=== PATIENT | male | born 1965 | race Two or more races ===

== ENCOUNTER 2020-11-27 08:16 | Emergency (ER) | payer MEDICAID ==
[~2020-11-27] VITALS: Ht 167.6 cm; Wt 78.5 kg
[2020-11-27 08:21] VITALS: BP 137/91
[2020-11-27] MEDS ORDERED: ACETAMINOPHEN EXTRA STRENGTH 500 MG TAB PO ONE (08:30)
[2020-11-27] MEDS ORDERED: DICYCLOMINE HCL LIQUID 20 MG, ALUMINUM HYD/MAG/SIMETHICONE 30 ML, LIDOCAINE VISCOUS 2% ... PO ONE ×3 (08:30)
[2020-11-27] MEDS ORDERED: ONDANSETRON 4 MG ODT PO ONE (08:30)
--- NOTE | 2020-11-27 08:32 | NUR ---
Patient ambulated to ER bed 6.
[2020-11-27] MEDS ORDERED: DICYCLOMINE HCL LIQUID 10 MG/5 ML UDC ONE (08:38)
[2020-11-27] MEDS ORDERED: ALUMINUM HYD/MAG/SIMETHICONE 30 ML UDC ONE (08:38)
[2020-11-27] MEDS ORDERED: diazePAM 5 MG TAB PO ONE (08:50)
--- NOTE | 2020-11-27 08:50 | NUR ---
55 YEAR OLD MALE COMPLAINS OF NAUSEA, VOMITTING, DIARRHEA X 4 DAYS. PT ALSO COMPLAINS OF COLD SWEATS, SHAKING, AND DIZZINESS. PT STATES HE NORMALLY DRINKS EVERY DAY BUT STOPPED 2 DAYS AGO. PT ALSO BELIEVES SYMPTOMS RELATED TO COVID VACCINATION 12 DAYS AGO. PT STATES ABDMINAL PAIN PRESENT ON/OFF X 2 MONTHS BUT DENIES AT THIS TIME. PMH - DM2, HTN, ALCOHOLISM, CIRRHOSIS ALLERGIES - NKA
[2020-11-27] MEDS ORDERED: CRUSHER, PILL MC ONE (08:51)
--- NOTE | 2020-11-27 09:01 | NUR ---
Lab phleb at bedside for blood draw.
[2020-11-27 09:21] LABS: BASOPHILS # (AUTO) 0.1 K/uL (0.00-0.22); BASOPHILS % (AUTO) 1.2 % (0.0-2.0); EOSINOPHILS # (AUTO) 0.1 K/uL (0-0.4); EOSINOPHILS % (AUTO) 2.1 % (0.0-4.0); HEMATOCRIT 43.2 % (36-52); HEMOGLOBIN 14.9 g/dL (12.0-18.0); LYMPHOCYTES # (AUTO) 1.2 K/uL (2.0-11.5); LYMPHOCYTES % (AUTO) 24.6 % (20.5-51.1); MEAN CORPUSCULAR HEMOGLOBIN 37 pg (27-31); MEAN CORPUSCULAR HGB CONC 34 g/dL (33-37); MEAN CORPUSCULAR VOLUME 107.7 fL (80-94); MONOCYTES # (AUTO) 0.4 K/uL (0.8-1.0); MONOCYTES % (AUTO) 7.2 % (1.7-9.3); NEUTROPHILS # (AUTO) 3.2 K/uL (1.8-7.7); NEUTROPHILS % (AUTO) 64.9 % (42.2-75.2); PLATELET COUNT (AUTO) 131 K/uL (140-450); RED BLOOD CELL COUNT(AUTO) 4.01 MIL/uL (4.20-6.10); RED CELL DISTRIBUTION WIDTH 13.2 % (11.6-13.7); WHITE BLOOD COUNT (AUTO) 4.9 K/uL (4.8-10.8)
[2020-11-27 09:21] LABS: APPEARANCE,URINE HAZY (CLEAR); BILIRUBIN,URINE NEGATIVE (NEGATIVE); BLOOD, URINE 1+ (NEGATIVE); COLOR,URINE YELLOW (YELLOW); LEUKOCYTE ESTERASE ,URINE TRACE (NEGATIVE); NITRITE, URINE POSITIVE (NEGATIVE); UGLUCOSE TRACE (NEGATIVE)
[2020-11-27 09:27] LABS: ALBUMIN 2.9 g/dL (3.4-5.0); ANION GAP 9.6 (8-16); CARBON DIOXIDE 29.8 mmol/L (21-32); CREATININE 1.1 mg/dL (0.6-1.3); POTASSIUM 3.4 mmol/L (3.5-5.1); TOTAL BILIRUBIN 2.1 mg/dL (0.0-1.0)
[2020-11-27 09:38] LABS: RBC,URINE 0-5 /HPF (0-5); URINE AMORPHOUS URATE 2+ /HPF (None Seen)
[2020-11-27] MEDS ORDERED: cefTRIAXone 1,000 MG in LIDOCAINE MPF 1% 2.1 ML IM ONE (09:45)
[2020-11-27] MEDS ORDERED: cefTRIAXone 1,000 MG VIAL ONE (10:14)
[2020-11-27] MEDS ORDERED: LIDOCAINE MPF 1% 5 ML ONE (10:14)
[2020-11-27] MEDS ORDERED: ONDA-188 PO (10:35)
[2020-11-27] MEDS ORDERED: MAG355OR2 PO (10:35)
[2020-11-27] MEDS ORDERED: SULF-59 PO (10:35)
[2020-11-27] MEDS ORDERED: LIB25 PO (10:37)
[2020-11-27 10:52] VITALS: BP 113/73
--- NOTE | 2020-11-27 10:52 | NUR ---
Patient discharged with v/s stable. Written and verbal after care instructions given and explained. Patient alert, oriented and verbalized understanding of instructions. Ambulatory with steady gait. All questions addressed prior to discharge. ID band removed. Patient advised to follow up with PMD. Rx of BACTRIM, LIBRIUM, AND MAG HYDROX/AL HYDROX/SIMETH given. Patient educated on indication of medication including possible reaction and side effects. Opportunity to ask questions provided and answered.
== END 2020-11-27 10:52 | disposition home or self-care (01) ==
LOC: MED 08:16
DX: N39.0 Urinary tract infection, site not specified (principal); F10.929 Alcohol use, unspecified with intoxication, unspecified; E11.9 Type 2 diabetes mellitus without complications; F12.10 Cannabis abuse, uncomplicated; F15.10 Other stimulant abuse, uncomplicated; Y90.9 Presence of alcohol in blood, level not specified
CPT/HCPCS: 36415; 80053; 81001; 82140; 83690; 85025; 87086; 96372; 99284; G0482; J0696; J2001; Q0162